=== PATIENT | female | born 1990 | race Caucasian/White ===

== ENCOUNTER 2019-04-17 11:02 | Day surgery (SDC) | payer OTHER, SELFPAY ==
[2019-04-17 12:25] VITALS: BP 124/83; PULSE 67; RESP 16; TEMP 35.9; O2SAT 100; BMI 23.2
[2019-04-17] MEDS: SODIUM CHLORIDE 0.9% 1,000 ML 70 ML IV (12:34)
[2019-04-17 12:50] VITALS: BMI 23.2
--- NOTE | 2019-04-17 13:54 | PM.HP.1 ---
History of Present Illness History of Present Illness Date Patient Seen: 04/17/19 Chief complaint: [id number] Narrative: Patient is a very pleasant 28-year-old female who presented for colonoscopy. 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 Her resection was 1 year ago. She has not had colonoscopy since that time. Patient History Medical History Colon cancer (Acute) Family & Social History Social History: household members children Meds Home Medications and Allergies Home Medications Medication Instructions Recorded Confirmed Type omeprazole magnesium [Prilosec OTC] 20 mg PO DAILY 04/17/19 04/17/19 History Allergies Allergy/AdvReac Type Severity Reaction Status Date / Time No Known Drug Allergies Allergy Verified 04/17/19 12:23 Review of Systems Review of Systems ROS Unobtainable: All systems reviewed & are unremarkable except as noted in HPI and below Exam Vital Signs (past 8 hours): - 04/17/19 12:25 Temperature 96.7 F L Pulse Rate 67 Respiratory Rate 16 Blood Pressure 124/83 Pulse Oximetry 100 Oxygen Delivery Method Room Air Const General: cooperative, healthy appearing, comfortable, well developed, well groomed and No acute distress Nutritional Appearance: average body habitus Orientation: oriented x3 Resp Effort & Inspection: normal respiratory effort Auscultation: clear to auscultation bilaterally Cardio Rate: regular rate Rhythm: regular rhythm Heart Sounds: S1 normal and S2 normal GI Palpation: soft, No guarding, No rigid and No tender Auscultation: normal bowel sounds Extrem Right lower extremity: no edema Left lower extremity: no edema Assessment & Plan Assessment & Plan narrative: 1. Personal history of colon cancer 2. Kaur syndrome - Colonoscopy today
[2019-04-17] MEDS: MIDAZOLAM 5 MG/5 ML VIAL IV (13:59)
[2019-04-17] MEDS: fentaNYL 250 MCG/5 ML INJ IV (13:59)
[2019-04-17 14:32] VITALS: BP 97/56; PULSE 59; RESP 22; TEMP 36.6; O2SAT 100
[2019-04-17 14:37] VITALS: BP 102/68; PULSE 64; RESP 12; O2SAT 99
--- NOTE | 2019-04-17 14:39 | PM.OP.ENDO ---
Operative Date/Time/Diagnoses Date of procedure: 04/17/19 Time of procedure: 14:02 Procedure Notes Procedure in detail: Surgeon: Hattie Oliva DO Procedure: Colonoscopy -high-risk surveillance, personal history colon cancer, Kaur syndrome Preoperative diagnosis: 1. History of colon cancer, Kaur syndrome Postoperative diagnosis: 1. Surgical anastomosis in the sigmoid colon consistent and anastomosis 2. Otherwise normal-appearing colonoscopy Medications: Conscious sedation using 8 mg IV of Midazolam and 200 mcg IV of Fentanyl Preanesthesia Assessment An H and P was performed/updated and the Px?s ASA class is 2. The procedure was discussed in detail with the patient. The potential risks and complications including infection, bleeding, missed lesions, perforation, need for surgery in case of perforation, prolonged hospital stay, and were explained. A brief question and answer period was allotted and once all questions were answered, informed consent was obtained. The patient was brought back to the procedure room and placed on standard monitoring. The patient?s vital signs were monitored continuously throughout the entire procedure. Prior to starting, a timeout was performed to confirm the patient?s identity, allergies, medications, and procedure. Procedure in detail The patient was placed in left lateral decubitus position and once adequate sedation was obtained a MACHO was performed. The digital rectal examination did not reveal any palpable lesions. The tip of the colonoscope was placed in the anal canal and advanced without difficulty all the way to the cecum which was identified by the appendiceal orifice and the ileocecal valve. Careful examination of all dewey of the colon was performed with irrigation of any residual stool. Inter side colonic anastomosis noted in the sigmoid colon at approximately 15 cm. This was healthy in appearance. The remainder of the colon was completely unremarkable with no polyps identified. The patient tolerated the procedure well and will be brought back to the recovery area to be discharged once criteria are met. The prep was judged to be good/excellent and adequate to identify polyps less than 5 mm. The withdrawal time was 8min. The total physician intraservice time was 22min. Complications There were no complications and estimated blood loss was minimal. Recommendations: Resume previous diet Continue outPx medications Repeat colonoscopy in 1 year An emergency contact number was given to the patient for any complications related to the procedure
[2019-04-17 14:42] VITALS: BP 98/65; PULSE 58; RESP 15; O2SAT 99
[2019-04-17 14:45] VITALS: BP 98/66; PULSE 555; RESP 12; TEMP 36.8; O2SAT 99
[2019-04-17 15:04] VITALS: BP 103/64; PULSE 63; RESP 20; TEMP 36.8; O2SAT 100
== END 2019-04-17 15:13 | disposition home or self-care (01) ==
PROVIDERS: Visit Provider Student in an Organized Health Care Education/Training Program
PROC: 0DJD8ZZ Inspection of Lower Intestinal Tract, Via Natural or Artificial Opening Endoscopic (ICD-10-PCS; CPT 45378; principal; 2019-04-17 13:30)
DX: Z12.11 Encounter for screening for malignant neoplasm of colon (principal); Z85.038 Personal history of other malignant neoplasm of large intestine; Z15.09 Genetic susceptibility to other malignant neoplasm
CPT/HCPCS: 45378; J2250; J3010

== ENCOUNTER → 2021-06-01 11:44 | Outpatient (CLI) | payer OTHER, SELFPAY ==
[2021-06-01 12:12] LABS: Appearance Urine UA CLEAR; Bilirubin Urine UA NEGATIVE (NEGATIVE); Color Urine UA YELLOW; Glucose Urine UA NEGATIVE (Negative); Ketones Urine UA NEGATIVE (NEGATIVE); Leukocyte Esterase Urine UA NEGATIVE (NEGATIVE); Nitrite Urine UA NEGATIVE (Negative); Occult Blood Urine UA NEGATIVE (Negative); Protein Urine UA NEGATIVE (Negative); Specific Gravity Urine UA <=1.005 (1.000-1.035); Urobilinogen Urine UA 0.2 E.U./dL (0.2)
[2021-06-01 12:33] LABS: Add Manual Diff / Slide Review NO; Basophils Absolute Auto 0 /uL (0-100); Basophils Percent Auto 0.2 % (0-2); Eosinophils Absolute Auto 0 /uL (0-450); Eosinophils Percent Auto 0.3 % (2-4); Hematocrit 40.7 % (36-46); Hemoglobin 14.2 g/dL (12.0-16.0); Lymphocytes Absolute Auto 600 /uL (1100-4500); Lymphocytes Percent Auto 13.5 % (25-40); Mean Corpuscular HGB Conc 34.9 % (30-36); Mean Corpuscular Hemoglobin 31.7 PG (26-34); Mean Corpuscular Volume 90.8 fL (80-100); Monocytes Absolute Auto 500 /uL (0-900); Monocytes Percent Auto 9.5 % (3-14); Neutrophils Absolute Auto 3700 /uL (1500-7000); Neutrophils Percent Auto 76.5 % (50-75); Platelet Count 191 X10^3/uL (150-400); Red Blood Cell Count 4.48 X10^6/uL (4.0-5.2); White Blood Cell Count 4.8 X10^3/uL (4.5-11.0)
[2021-06-01 13:26] LABS: Hepatitis B Surface Antigen NEGATIVE s/c (NEGATIVE); Rubella Antibody IgG 15.6 IU/mL (>15)
[2021-06-01 13:42] LABS: HIV 1 & 2 Ab/Ag 4th Gen Combo NEGATIVE (NEGATIVE); Hep C Virus Ab w/Reflex Quant NEGATIVE s/c (NEGATIVE)
[2021-06-02 04:42] LABS: RPR Screen Non Reactive (Non Reactive)
[2021-06-02 09:16] LABS: Varicella IgG Antibody 608 index (Immune >165)
== END ==
PROVIDERS: Referring Provider Obstetrics & Gynecology; Visit Provider Obstetrics & Gynecology
DX: Z34.80 Encounter for supervision of other normal pregnancy, unspecified trimester (principal)
CPT/HCPCS: 36415; 80055; 81003; 86787; 86803; 86850; 86900; 86901; 87086; 87389

== ENCOUNTER → 2021-06-18 14:21 | Outpatient (CLI) | payer OTHER, SELFPAY | PROVIDERS: Referring Provider Obstetrics & Gynecology; Visit Provider Obstetrics & Gynecology | DX: Z34.81 Encounter for supervision of other normal pregnancy, first trimester (principal); Z36.0 Encounter for antenatal screening for chromosomal anomalies | CPT/HCPCS: 36415 ==

== ENCOUNTER → 2021-06-28 10:57 | Outpatient (CLI) | payer OTHER, SELFPAY ==
[2021-06-28 14:32] LABS: Urine Chlamydia NOT DETECTED; Urine N gonorrhoeae NOT DETECTED
== END ==
PROVIDERS: PCP Nurse Practitioner Family; Visit Provider Obstetrics & Gynecology
DX: Z34.81 Encounter for supervision of other normal pregnancy, first trimester (principal); Z3A.13 13 weeks gestation of pregnancy
CPT/HCPCS: 87491; 87591

== ENCOUNTER → 2021-08-19 11:55 | Outpatient (CLI) | payer OTHER, SELFPAY ==
[2021-08-21 20:57] LABS: AFP Value 68.3 ng/mL (.); Gest Age on Col Date 20.6 weeks (.); Insulin Dep Diabetes No (.); OSBR Risk 1IN 7137 (.); Results Report (.); Test Results *Screen Negative* (.)
== END ==
PROVIDERS: PCP Nurse Practitioner Family; Referring Provider Obstetrics & Gynecology; Visit Provider Obstetrics & Gynecology
DX: Z34.02 Encounter for supervision of normal first pregnancy, second trimester (principal); Z3A.20 20 weeks gestation of pregnancy
CPT/HCPCS: 36415; 82105

== ENCOUNTER → 2021-08-25 10:54 | Outpatient (CLI) | payer OTHER, SELFPAY ==
--- NOTE | 2021-08-25 10:56 | DI.US.S_ITS ---
PROCEDURE: US OB >= 14 WEEKS FETUS INDICATIONS: ANATOMY SCAN OUTSIDE/PRIOR DATING DATA: Last menstrual period (LMP): March 28, 2021. LMP-based estimated date of delivery (SHAHRIAR): January 02, 2022. First dating scan (date and location): August 25, 2021. Estimated date of delivery (SHAHRIAR) from first dating scan: January 06, 2022. TECHNIQUE: Real-time scanning was performed of the fetus, with image documentation and biometric measurements. Endovaginal scanning: Not performed COMPARISON: None. FINDINGS: General: A single living intrauterine gestation is present. Presentation: Variable. Placenta: Placental position is posterior , without previa. Amniotic fluid index: 11.4 cm, normal range is 5-24 cm. Single deepest vertical pocket is 3.5 cm. heart rate: 131 beats per minute. Maternal cervical canal: 4.4 cm long. Normal lower limit is 2.5 cm. biometrics: Biparietal diameter: 4.7 cm, 20 weeks and 1 day Head circumference: 18.1 cm, 20 weeks and 3 days Abdominal circumference: 16.2 cm, 21 weeks and 2 days Femur length: 3.7 cm, 21 weeks and 5 days Clinically estimated gestational age: 20 weeks and 6 days Composite gestational age from present scan: 21 weeks and 3 days Estimated weight and percentile: 417 g which places the fetus within the 40th percentile Anatomic survey: Neuro: Ventricles are non-dilated at less than 10 mm. Cisterna magna is normal at 3-11 mm. Cerebellum is normal in size and morphology. Nuchal skin fold: Normal at less than 6 mm between 14-21 weeks gestational age. Face: Nose and lips, facial profile are normal. Spine: No evidence for spina bifida. Heart: 4-chambered heart is present, with normal ventricular outflow tracts. Diaphragm: Diaphragm is intact. Stomach: Left-sided stomach is present. Kidneys: No hydronephrosis. Normal is less than 5 mm in 2nd trimester, less than 7 mm in 3rd trimester. Cord: 3-vessel cord has orthotopic insertion. Bladder: Normal in size. Extremities: All 4 extremities identified. IMPRESSION: Single living intrauterine gestation with estimated sonographic gestational age of approximately 20 weeks and 6 days . Expected interval growth has occurred. Estimated weight of 417 g which places the fetus within the 40th percentile for gestational age. Otherwise, unremarkable second-trimester anatomic screening survey. We strive to produce accurate, complete, and clear reports of imaging services. To assist us in improving patient care, this report was composed using standard report templates and voice recognition software. Therefore, it may contain abnormal punctuation, insertions and/or omissions. Occasional wrong-word or sound-alike substitutions may occur. Though we review the report and make efforts to correct it, we do recommend that the report be read carefully in proper context to recognize any text inaccuracies. Dictated by: Chon Whitaker M.D. on 08/25/2021 at 14:30 Approved by: Chon Whitaker M.D. on 08/25/2021 at 14:54
== END ==
PROVIDERS: PCP Nurse Practitioner Family; Referring Provider Obstetrics & Gynecology; Visit Provider Obstetrics & Gynecology
DX: Z34.82 Encounter for supervision of other normal pregnancy, second trimester (principal); Z3A.21 21 weeks gestation of pregnancy
CPT/HCPCS: 76811